=== PATIENT | male | born 1940 | race African-American/Black ===

== ENCOUNTER 2019-08-15 11:27 | Inpatient (IN) ==
[2019-08-15 12:15] LABS: BASO# 0.05 X1000 (0.0-0.2); BASO% 0.4 % (0.0-0.8); EOS# 0.21 X1000 (0.0-0.7); EOS% 1.8 % (0.0-10.0); HEMATOCRIT 35.8 % (42.0-52.0); HEMOGLOBIN 11.6 g/dL (14.0-18.0); IMM GRAN# 0.04 X1000 (0.0-0.04); IMM GRAN% 0.3 % (0.0-0.5); LYMPH# 2.36 X1000 (1.2-3.4); MCH 30.1 PG (27-31); MCHC 32.4 g/dL (33-37); MCV 92.7 FL (81-99); MONO# 1.28 X1000 (0.11-0.59); MONO% 10.9 % (1.7-9.3); MPV 10.8 FL (7.4-10.4); NEUT# 7.84 X1000 (1.4-6.5); NEUT% 66.6 % (42.2-75.2); PLT 184 X1000 (130-400); RBC 3.86 XMIL (4.7-6.1); RDW 14.5 % (11.5-14.5); WBC 11.78 X1000 (4.8-10.8)
[2019-08-15 12:21] LABS: URINE SOURCE CLEAN CATCH
[2019-08-15 12:26] LABS: BILIRUBIN URINE NEGATIVE (NEGATIVE); BLOOD URINE NEGATIVE (NEGATIVE); COLOR YELLOW; GLUCOSE URINE NEGATIVE (NEGATIVE); KETONE URINE NEGATIVE (NEGATIVE); LEUKOCYTES URINE NEGATIVE (NEGATIVE); NITRITE URINE NEGATIVE (NEGATIVE); PH URINE 5.5; PROTEIN URINE NEGATIVE (NEGATIVE); TURBIDITY URINE CLEAR (CLEAR); UROBILINOGEN URINE NORMAL (NORMAL)
--- NOTE | 2019-08-15 12:26 | EKG Report ---
Test Performed on : 08/15/2019 11:46:41 AM Test Reason : shoulder pain/CP Blood Pressure : / mmHG Vent. Rate : 066 BPM Atrial Rate : 066 BPM P-R Int : 202 ms QRS Dur : 120 ms QT Int : 432 ms P-R-T Axes : 000 -25 033 degrees QTc Int : 452 ms Normal sinus rhythm. Left ventricular hypertrophy with QRS widening Abnormal ECG No previous ECGs available Unconfirmed Result
[2019-08-15 12:28] LABS: UR EPITHELIAL CELLS <10 /HPF (<10); URINE BACTERIA NEGATIVE /HPF; URINE RBC <10 /HPF (<10); URINE WBC <10 /HPF (<10)
[2019-08-15 12:36] LABS: ALB/GLOB RATIO 1.3; ALBUMIN 4.2 g/dL (3.5-5.0); CALCIUM 8.9 mg/dL (8.8-10.2); CREATININE 1.6 mg/dL (0.7-1.2); POTASSIUM 3.7 mmol/L (3.5-5.1); TOTAL BILIRUBIN 0.49 mg/dL (0.20-1.00); TOTAL PROTEIN 7.4 g/dL (6.3-8.3)
[2019-08-15] MEDS ORDERED: ZOFRAN IV ONE (13:35)
[2019-08-15] MEDS ORDERED: NS 500 ML IV ONE (13:35)
[2019-08-15] MEDS ORDERED: DILAUDID IV ONE ×2 (13:35→15:04)
--- NOTE | 2019-08-15 14:42 | Diag Imaging Result Doc PS360 ---
CT ABD/PELVIS W/IV CONT ONLY - 08/15/2019 INDICATION: RUQ pain COMPARISON: None FINDINGS: There is extensive infiltrate in the right lower lobe compatible with pneumonia. Heart size is top normal. No pericardial effusion. The kidneys are lobular bilaterally indicating mild renal cortical scarring. No obstruction or renal atrophy. There are bilateral renal cysts. Otherwise all abdominal organs are normal. There is moderate diffuse constipation. No bowel obstruction or inflammation. Urinary bladder, prostate, and rectum are normal. There is some skin thickening with subcutaneous fat edema at the anterior body wall at the left lower quadrant/left side of the pelvis. Correlate for cellulitis. No foreign body or soft tissue gas. 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 There are advanced degenerative changes of the spine. No acute or suspicious bony lesion. There are numerous well-defined cystic bony lucencies throughout the pelvis bilaterally, indeterminate but most suggestive of cystic osteoporosis. No fractures or cortical erosions. IMPRESSION: 1. Right lower lobe infiltrate/pneumonia. 2. Constipation. 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 4. Significant area of cellulitis or other skin inflammation at the anterior left lower quadrant/left side of the pelvis. This exam was performed using automated exposure control, adjustment of mA or kV according to patient size, and/or use of iterative reconstruction technique Electronically signed by James Matias 08/15/2019 2:40 PM
--- NOTE | 2019-08-15 14:59 | PROVIDER DOCUMENTATION ---
HPI-General Adult - General Chief Complaint: Abdominal Pain Stated Complaint: RT SIDE PAIN Time Seen by Provider: 08/15/19 13:16 Source: patient Allergies/Adverse Reactions: Patient Allergies Allergy/AdvReac Type Severity Reaction Status Date / Time No Known Allergies Allergy Verified 08/15/19 13:55 Home Medications: Home Medication List Medication Instructions Recorded Confirmed Last Taken Type Bisoprolol [Zebeta] 1 dose PO DAILY 08/15/19 08/15/19 08/15/19 History Citric Acid/Sodium Citrate 1 dose PO TID 08/15/19 08/15/19 08/15/19 History [Cytra-2 Oral Solution] Cyclobenzaprine [Flexeril] 1 dose PO QHS 08/15/19 08/15/19 08/14/19 History Digoxin [Lanoxin] 0.5 tab PO DAILY 08/15/19 08/15/19 08/15/19 History Gabapentin E.r. [Gralise] 1 tab PO BID 08/15/19 08/15/19 08/15/19 History Insulin Aspart [Novolog Flexpen] 1 unit SUBQ PRN PRN 08/15/19 08/15/19 08/14/19 History Insulin Glargine,Hum.rec.anlog 40 units SUBQ HS 08/15/19 08/15/19 08/14/19 History [Lantus Solostar] Lisinopril 1 dose PO DAILY 08/15/19 08/15/19 08/15/19 History Omeprazole [Prilosec] 1 dose PO DAILY 08/15/19 08/15/19 08/15/19 History ROSUVAstatin [Crestor] 1 tab PO QHS 08/15/19 08/15/19 08/14/19 History - History of Present Illness -Gen Adult Nature of Presenting Problems: Patient is an 79 yobm who complains of RUQ pain worse with deep inspiration and lying flat since last night. Denies fever, cough, n/v/d, or any other complaints. He is non-toxic in appearance. Review of Systems - Adult - REVIEW OF SYSTEMS - ADULT Constitutional: reports: no symptoms reported. denies: chills, fever Eyes: reports: no symptoms reported Ears, Nose, Mouth & Throat: reports: no symptoms reported Cardiovascular: reports: no symptoms reported Respiratory: reports: no symptoms reported Gastrointestinal: reports: see HPI Genitourinary: reports: no symptoms reported Musculoskeletal: reports: no symptoms reported Integumentary: reports: no symptoms reported Neurological: reports: no symptoms reported Psychiatric: reports: no symptoms reported Endocrine: reports: no symptoms reported Hematologic/Lymphatic: reports: no symptoms reported Allergic/Immunologic: reports: no symptoms reported All Other Systems: Reviewed and Negative Past History - Adult - PAST MEDICAL HISTORY-ADULT Review of Records: reports: Nursing Assessment Review, Medications Reviewed, Social history reviewed & non-contributory. Major Childhood Illnesses: reports: denies history Cardiovascular: reports: HTN Respiratory: reports: denies history Gastrointestinal: reports: denies history Genitourinary: reports: denies history Musculoskeletal: reports: denies history Neurological: reports: denies history Psychiatric: reports: denies history Endocrine/Immune: reports: Diabetes Diabetes Type: Type 2 Diabetes controlled by:: Insulin Dependent Other Conditions: reports: denies history - PRIOR SURGERIES/PROCEDURES Surgical/Procedure History: reports: reviewed, not pertinent - FAMILY HISTORY Family History: reviewed, not pertinent - SOCIAL HISTORY Smoking: non-smoker Physical Exam-General - PHYSICAL EXAM-ADULT Initial Vital Signs Reviewed: Yes - CONSTITUTIONAL General Appearance: alert, mild distress. negative: lethargic, slow to respond - EYES Eyes: PERRL/EOMI, pink conjunctivae - HEAD, EARS, NOSE, MOUTH & THROAT HENMT: normocephalic/atraumatic, moist mucous membranes - NECK Neck: non-tender, full range of motion, supple, normal inspection - RESPIRATORY Respiratory: lungs clear, normal breath sounds, no respiratory distress, no accessory muscle use, pain on inspiration, splinting. negative: retractions, crepitus - CARDIOVASCULAR Cardiovascular: normal peripheral pulses, regular rate, rhythm, no edema, no gallop, no JVD, no murmur - GASTROINTESTINAL (ABDOMEN) Abdominal Exam: normal bowel sounds, non tender, soft, no organomegaly, no pulsatile mass. negative: distended, guarding, rigid, rebound, tenderness, hernia, mass, Powers's sign - MUSCULOSKELETAL Back Exam: normal inspection Extremity: normal range of motion, non-tender, normal gait, normal inspection - SKIN Integumentary: normal color, warm/dry. negative: cyanosis, diaphoresis, jaundice, mottled, pallor - NEUROLOGIC Neurologic: grossly normal, no motor/sensory deficits - PSYCHIATRIC Psych/Mental Status: normal mood/affect, normal thought content, normal thought process, oriented x 3 Progress - PLAN OF CARE/RESULTS Progress/Plan/Lab Results: Vital Signs - 8 hr 08/15/19 11:36 08/15/19 13:36 08/15/19 13:37 Temperature 97.9 F Pulse Rate 68 Respiratory Rate 16 Blood Pressure 175/75 155/87 O2 Sat by Pulse Oximetry 98 98 99 08/15/19 13:45 08/15/19 14:00 Temperature Pulse Rate Respiratory Rate Blood Pressure O2 Sat by Pulse Oximetry 98 98 Laboratory Results - last 24 hr 08/15/19 08/15/19 08/15/19 11:50 11:50 11:50 WBC 11.78 H RBC 3.86 L Hgb 11.6 L Hct 35.8 L MCV 92.7 MCH 30.1 MCHC 32.4 L RDW Std Deviation 14.5 Plt Count 184 MPV 10.8 H Immature Gran % (Auto) 0.3 Neut % (Auto) 66.6 Lymph % (Auto) 20.0 L [place] % (Auto) 10.9 H Eos % (Auto) 1.8 Baso % (Auto) 0.4 Immature Gran # (Auto) 0.04 Neut # (Auto) 7.84 H Lymph # (Auto) 2.36 [place] # (Auto) 1.28 H Eos # (Auto) 0.21 Baso # (Auto) 0.05 Sodium 136 Potassium 3.7 Chloride 103 Carbon Dioxide 22 L Anion Gap 11 BUN 22 Creatinine 1.6 H Estimated GFR/1.73 m2 51 BUN/Creatinine Ratio 14 Glucose 130 H Calculated Osmolality 277 Calcium 8.9 Total Bilirubin 0.49 AST 17 ALT 17 Alkaline Phosphatase 65 Troponin T < 0.010 Total Protein 7.4 Albumin 4.2 Globulin 3.2 Albumin/Globulin Ratio 1.3 Lipase 36 Urine Source Urine Color Urine Turbidity Urine pH Ur Specific [place] Urine Protein Ur Glucose (Stick) Ur Ketones (Stick) Urine Blood Urine Nitrite Urine Bilirubin Urobilinogen Dipstick Urine Leukocytes Urine WBC (Auto) Urine RBC (Auto) U Epithel Cells (Auto) Urine Bacteria (Auto) 08/15/19 12:15 WBC RBC Hgb Hct MCV MCH MCHC RDW Std Deviation Plt Count MPV Immature Gran % (Auto) Neut % (Auto) Lymph % (Auto) [place] % (Auto) Eos % (Auto) Baso % (Auto) Immature Gran # (Auto) Neut # (Auto) Lymph # (Auto) [place] # (Auto) Eos # (Auto) Baso # (Auto) Sodium Potassium Chloride Carbon Dioxide Anion Gap BUN Creatinine Estimated GFR/1.73 m2 BUN/Creatinine Ratio Glucose Calculated Osmolality Calcium Total Bilirubin AST ALT Alkaline Phosphatase Troponin T Total Protein Albumin Globulin Albumin/Globulin Ratio Lipase Urine Source CLEAN CATCH Urine Color YELLOW Urine Turbidity CLEAR Urine pH 5.5 Ur Specific [place] 1.010 Urine Protein NEGATIVE Ur Glucose (Stick) NEGATIVE Ur Ketones (Stick) NEGATIVE Urine Blood NEGATIVE Urine Nitrite NEGATIVE Urine Bilirubin NEGATIVE Urobilinogen Dipstick NORMAL Urine Leukocytes NEGATIVE Urine WBC (Auto) <10 Urine RBC (Auto) <10 U Epithel Cells (Auto) <10 Urine Bacteria (Auto) NEGATIVE Orders Category Date Time Status NPO Diet 08/15/19 11:[address] ABD/PELVIS W/IV CONT ONLY [CT] Stat Exams 08/15/19 13:34 Completed CBC WITH DIFF [HEME] Stat Lab 08/15/19 11:50 Completed COMPREHENSIVE METABOLIC PANEL [CHEM] Stat Lab 08/15/19 11:50 Completed LIPASE [CHEM] Stat Lab 08/15/19 11:50 Completed TROPONIN T Stat Lab 08/15/19 11:50 Completed URINALYSIS [URINALYSIS] Stat Lab 08/15/19 12:15 Completed 0.9% Sodium Chloride Inj [Ns] 500 ml Med 08/15/19 13:35 Discontinued IV 999 mls/hr Hydromorphone [Dilaudid] Med 08/15/19 13:35 Discontinued 0.5 mg IV NOW ONE Ondansetron [Zofran] Med 08/15/19 13:35 Discontinued 4 mg IV NOW ONE Abd Pain/OB <20 weeks Stat Oth 08/15/19 11:39 Ordered EKG [EKG] Stat Ther 08/15/19 11:40 Draft Result Diagrams: 08/15/19 11:50 08/15/19 11:50 - REASSESSMENT Reassessment #1 Time Reassessed: 14:50 Status: improving (Pt states pain improved with Dilaudid but has since worn off and he is hurting again. Will re-medicate. He is in agreement with admission plan. Re-examined abdomen, no external cellulitis in LLQ, CT finding noted and discussed with admitting HPS. Pt denies pain or tenderness in this region.) - EKG 1 Time of EKG reading by physician:: 11:50 EKG Read and Signed by:: Alisa Hearn EKG Interpretation (*Must complete 3 of following elements*): Abnormal Rate: 66 Rhythm: NSR- left ventricular hypertrophy with QRS widening ST Wave: normal - CT/MRI 1 CT Study: Abdomen, Pelvis ([facility] - [address] [facility], [address], [place] [address] [facility] - [address] [place] [address] Department of Imaging Patient: MARYANN BYRNE Date: #: [id number] : 1940DM Status: REG ERAcct#: [id number] Age/Sex: 79/MRoom/Bed: Loc: ED Ordering Physician: Ari Villalobos Family Physician: Jose Alfredo Najera MD Reason for Procedure: RUQ pain ____ Signed CT ABD/PELVIS W/IV CONT ONLY - 08/15/2019 INDICATION: RUQ pain COMPARISON: None FINDINGS: There is extensive infiltrate in the right lower lobe compatible with pneumonia. Heart size is top normal. No pericardial effusion. The kidneys are lobular bilaterally indicating mild renal cortical scarring. No obstruction or renal atrophy. There are bilateral renal cysts. Otherwise all abdominal organs are normal. There is moderate diffuse constipation. No bowel obstruction or inflammation. Urinary bladder, prostate, and rectum are normal. There is some skin thickening with subcutaneous fat edema at the anterior body wall at the left lower quadrant/left side of the pelvis. Correlate for cellulitis. No foreign body or soft tissue gas. 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 There are advanced degenerative changes of the spine. No acute or suspicious bony lesion. There are numerous well-defined cystic bony lucencies throughout the pelvis bilaterally, indeterminate but most suggestive of cystic osteoporosis. No fractures or cortical erosions. IMPRESSION: 1. Right lower lobe infiltrate/pneumonia. 2. Constipation. 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 4. Significant area of cellulitis or other skin inflammation at the anterior left lower quadrant/left side of the pelvis. This exam was performed using automated exposure control, adjustment of mA or kV according to patient size, and/or use of iterative reconstruction technique Electronically signed by James Matias 08/15/2019 2:40 PM 08/15/19 1440 Interpreting Physician: James Matias MD Dictated Date/Time: 08/15/19 1435 cc: Ari Villalobos; Jose Alfredo Najera MD) - CONSULTS/PCP/HOSPITALIST Notification #1 *Consult/PCP/Hospitalist*: MARTHA Gonzalez MICROBIOLOGY PROFESSOR Time Discussed: 15:05 Reason/Comments: admission- pne Consult Disposition: Will see in ED, Admit Departure - Departure Date of Disposition Decision: 08/15/19 Time of Disposition Decision: 15:00 DIAGNOSIS: Pneumonia Qualifiers: Pneumonia type: due to unspecified organism Laterality: right Lung location: lower lobe of lung Qualified Code(s): J18.1 - Lobar pneumonia, unspecified organism Disposition: ADMITTED INPATIENT 09 Certified Medical Emergency: Emergent Condition: Stable Referrals and Follow-Ups: Jose Alfredo Najera MD [Primary Care Provider] - - Critical Care Note This patient required my direct & personal management of CC.: No Attestation - Physician/ HERON Attestation Patient care was provided by Advanced Practice Provider:: Yes Advanced Practice Provider:: Ari Villalobos Advanced Practice Provider documentation review:: The Mid-level provider documentation, treatment plan and medical decision making was reviewed by the physician who agrees with all treatment and medical decision making by the P. The physician spent face to face time with patient:: No Advanced Practice Provider documentation review:: Supervising physician onsite and consulted in the evaluation and care of this patient. The physician did not have a face to face encounter with the patient.
[2019-08-15] MEDS ORDERED: ROCEPHIN 1 GM in NS 50 ML IV ONE (15:04)
[2019-08-15] MEDS ORDERED: DUONEB (A & A) INH PRN (16:55)
[2019-08-15] MEDS ORDERED: TYLENOL PO PRN (16:55)
[2019-08-15] MEDS ORDERED: BICITRA PO SCH (17:00)
--- NOTE | 2019-08-15 17:33 | HISTORY AND PHYSICAL ---
HISTORY OF PRESENT ILLNESS: He is an 79-year-old, I think he is followed by Dr. Sharp. He is from [place]. He reports that he started having some right upper quadrant pain and that started yesterday, and that is really what is his main concern. He is status post appendectomy, but he denied chest pain. He denies shortness of breath. No pleuritic pain in the chest, but when he described the pain it seemed to hurt when he took a deep breath in the right upper quadrant right underneath the rib margin. PAST MEDICAL HISTORY: 1. Hypertension. 2. Diabetes mellitus type 2, which he has had for 25 years. 3. Hyperlipidemia. 4. Gastroesophageal reflux disease. 5. He has some spurs in his back he has had surgery on his lower back for diskectomy in the past. 6. We are presuming maybe he was treated for atrial fibrillation, for awhile he was on digoxin. He does not give any history of known heart disease. He said his heart was a little jittery for a while. PAST SURGICAL HISTORY: 1. Status post appendectomy. 2. Back surgery, lower back laminectomy it sounds like we had or decompressive surgery. SOCIAL HISTORY: Negative for alcohol, tobacco, and illicit drugs. He is retired. He does a lot of gardening. He is pretty active. FAMILY HISTORY: Mother with hypertension. All his siblings with hypertension. Father with hypertension. ALLERGIES: No known drug allergies. REVIEW OF SYSTEMS: General: He does not report any weight gain or loss. No change in appetite. HEENT: No change in visual or hearing acuity. Neck: No neck pain. No adenopathy that he reports. Respiratory: No increased work of breathing or dyspnea. Cardiovascular: No chest pain or tachy palpitation. Gastrointestinal/Genitourinary: Really no change in his bowels. He does have constipation, takes milk of magnesia about every 3rd day, but he was complaining of right upper quadrant discomfort, which is what brought him to the emergency room. Musculoskeletal/Neurologic: No focal complaints. Immunologic/Hemologic: No significant history. PHYSICAL EXAMINATION: VITAL SIGNS: Temperature is 97.9 degrees, pulse 68, respirations 16, blood pressure 158/87. Weight 225 pounds. Height 5 feet 11 inches. HEENT: Pupils are equal and round. LUNGS: Clear in all lung thompson. CARDIOVASCULAR: Regular rhythm and rate without murmur or S3. ABDOMEN: Soft. He some tenderness that is deep. He really was not real tender to palpation on the abdomen, but he pointed to the right mid upper quadrant and felt it was deep down. SKIN: Warm and dry. NECK: Supple. No thyromegaly, no lymphadenopathy. LABORATORY DATA: White count 11,780, hematocrit 35, hemoglobin 11, platelet count 184,000. Sodium 136, potassium 3.7, chloride 107, BUN 22, creatinine 1.6. AST is 17, ALT is 17. Troponin less than 0.01. Albumin was 4.2. 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 On exam, I did not see any sign of skin cellulitis. ASSESSMENT AND PLAN: 1. Right lower lobe pneumonia or infiltrate. It is a community-acquired pneumonia, so we will treat him with ceftriaxone, and we will give him 1 gram now and then every 24 hours. I am not sure what is causing the right-sided abdominal pain, whether it could be referred pain since it is right lower lobe pneumonia. 2. Diabetes mellitus type 2. Will check pattern sugars. Put him on a sliding scale. 3. History of constipation. Aware. We will give milk of magnesia as needed. 4. Hypertension. 5. History of gastroesophageal reflux, so we will put him on Nexium 40 mg once a day. 6. Not sure what history he had as far as saying his heart was jittery. We will continue his current medications. He is on digoxin, so we ought to check a digoxin level, and we will do that in the morning, check a digoxin level. Continue his home medications. cc: Adolfo Hopkins MD
[2019-08-15] MEDS: LANTUS INSULIN SUBQ SCH (20:59)
[2019-08-15] MEDS: FLEXERIL PO SCH (20:59)
[2019-08-15] MEDS: NEURONTIN PO SCH (20:59)
[2019-08-15] MEDS: CRESTOR PO SCH (20:59)
[2019-08-15] MEDS: NS 1,000 ML IV SCH (21:00)
[2019-08-16 05:55] LABS: BASO# 0.02 X1000 (0.0-0.2); BASO% 0.2 % (0.0-0.8); EOS% 0.9 % (0.0-10.0); HEMATOCRIT 34.2 % (42.0-52.0); HEMOGLOBIN 10.9 g/dL (14.0-18.0); IMM GRAN# 0.02 X1000 (0.0-0.04); IMM GRAN% 0.2 % (0.0-0.5); LYMPH# 1.63 X1000 (1.2-3.4); LYMPH% 15.1 % (20.5-51.1); MCH 29.7 PG (27-31); MCHC 31.9 g/dL (33-37); MCV 93.2 FL (81-99); NEUT# 7.76 X1000 (1.4-6.5); NEUT% 71.6 % (42.2-75.2); PLT 174 X1000 (130-400); RBC 3.67 XMIL (4.7-6.1); RDW 14.6 % (11.5-14.5); WBC 10.83 X1000 (4.8-10.8)
[2019-08-16 06:07] LABS: HEMOGLOBIN A1C 7.8 % (4.8-6.0)
[2019-08-16 06:12] LABS: AGAP 9; ALB/GLOB RATIO 1.1; ALBUMIN 3.6 g/dL (3.5-5.0); ALKALINE PHOSPHATASE 57 U/L (32-122); BUN 20 mg/dL (8-22); CALCIUM 8.8 mg/dL (8.8-10.2); CHLORIDE 104 mmol/L (98-107); COSMO 278; CREATININE 1.4 mg/dL (0.7-1.2); DIGOXIN < 0.3 ng/mL (0.9-2.0); ESTIMATED GFR 59; GLUCOSE 159 mg/dL (70-104); GOT 14 U/L (10-34); GPT 12 U/L (10-44); POTASSIUM 3.9 mmol/L (3.5-5.1); SODIUM 136 mmol/L (136-145); TCO2 23 mmol/L (25-35); TOTAL BILIRUBIN 0.49 mg/dL (0.20-1.00); TOTAL PROTEIN 6.9 g/dL (6.3-8.3)
[2019-08-16] MEDS: PRILOSEC PO SCH (06:53)
[2019-08-16 06:54] LABS: FREE T4 1.17 ng/dL (0.93-1.70); TSH 0.68 uIUmL (0.27-4.20)
--- NOTE | 2019-08-16 09:03 | Diag Imaging Result Doc PS360 ---
EXAM: CHEST-2 VIEWS INDICATION: Pneumonia TECHNIQUE: 2 views COMPARISON: None. FINDINGS: There are increased linear opacities at both lung bases suggesting atelectasis, worse on the right. A component of superimposed pneumonia at the right lung base is possible. There is no discrete pleural fluid collection or pneumothorax. The cardiomediastinal silhouette and central vasculature are grossly unremarkable. IMPRESSION: Bibasilar atelectasis +/- superimposed pneumonia at the right lung base. Electronically signed by Jose Daniel Saleh 08/16/2019 9:00 AM
[2019-08-16] MEDS: NS 1,000 ML IV SCH ×3 (10:14→22:46)
[2019-08-16] MEDS: LANOXIN PO SCH (10:15)
[2019-08-16] MEDS: PRINIVIL PO SCH (10:15)
[2019-08-16] MEDS: LOVENOX SUBQ SCH (10:17)
[2019-08-16] MEDS: NEURONTIN PO SCH ×2 (10:17→20:50)
[2019-08-16] MEDS: ZEBETA PO SCH (10:27)
--- NOTE | 2019-08-16 13:33 | PROGRESS NOTE ---
DATE: 08/16/[address] Najera. An 79-year-old followed by Dr. Najera and he is from [place]. We put him in yesterday. Appears to have right lower quadrant pneumonia. He does feel better. His pain is better. OBJECTIVE: Vital Signs: Temp 98.2 degrees, pulse 67, respirations 19, blood pressure 186/64. HEENT: Pupils are equal and round. Lungs: Are clear in all lung thompson. Cardiovascular: Regular rhythm and rate without murmur or S3. Urine output was 2200 mL. ASSESSMENT AND PLAN: 1. Chest x-ray: Bibasilar atelectasis superimposed pneumonia in the right lung base. Continue present antibiotics. Clinically improved. 2. Diabetes mellitus type 2. Sugars under good control. 3. History of constipation. No complaints. 4. Hypertension. 5. History of gastroesophageal reflux. REVIEW OF HIS ORDERS: I do not see any change. Normal saline going at 85 mL an hour and we have him on ceftriaxone 1 g daily. LABORATORY DATA: From this morning, white count 33457, hematocrit is 34, platelet count 174,000. Blood sugars look okay. cc: Adolfo Hopkins MD
[2019-08-16] MEDS: ROCEPHIN 1 GM in NS 50 ML IV SCH (18:05)
[2019-08-16] MEDS: CRESTOR PO SCH (20:50)
[2019-08-16] MEDS: FLEXERIL PO SCH (20:50)
[2019-08-16] MEDS: HUMULIN R SUBQ SCH (20:50)
[2019-08-16] MEDS: LANTUS INSULIN SUBQ SCH (20:52)
[2019-08-17] MEDS: NS 1,000 ML IV SCH ×3 (04:34→16:04)
[2019-08-17] MEDS: PRILOSEC PO SCH (06:24)
[2019-08-17 06:59] LABS: AGAP 12; ALB/GLOB RATIO 0.8; ALKALINE PHOSPHATASE 53 U/L (32-122); BUN 14 mg/dL (8-22); CALCIUM 8.2 mg/dL (8.8-10.2); CHLORIDE 107 mmol/L (98-107); COSMO 280; CREATININE 1.2 mg/dL (0.7-1.2); ESTIMATED GFR > 60; GLUCOSE 138 mg/dL (70-104); GOT 15 U/L (10-34); GPT 12 U/L (10-44); POTASSIUM 3.7 mmol/L (3.5-5.1); SODIUM 139 mmol/L (136-145); TCO2 20 mmol/L (25-35); TOTAL BILIRUBIN 0.37 mg/dL (0.20-1.00); TOTAL PROTEIN 6.6 g/dL (6.3-8.3)
[2019-08-17] MEDS: HUMULIN R SUBQ SCH ×4 (07:00→20:37)
[2019-08-17] MEDS: ZEBETA PO SCH (08:49)
[2019-08-17] MEDS: PRINIVIL PO SCH (08:49)
[2019-08-17] MEDS: LANOXIN PO SCH (08:49)
[2019-08-17] MEDS: LOVENOX SUBQ SCH (08:51)
[2019-08-17] MEDS: NEURONTIN PO SCH ×2 (09:49→20:37)
[2019-08-17] MEDS ORDERED: MILK OF MAGNESIA PO ONE (13:08)
--- NOTE | 2019-08-17 13:23 | PROGRESS NOTE ---
DATE: 08/17/2019 SUBJECTIVE: Mr. Barber is breathing comfortably. Right upper quadrant pain is almost resolved. He is complaining of constipation so I am going to try him on some MiraLAX and some milk of magnesia. He remains afebrile. OBJECTIVE: Temperature 98.2 degrees, pulse 70, respirations 16, blood pressure 155/55. Pupils are equal and round. Lungs are clear in all lung thompson. Cardiovascular Examination: Regular rhythm and ate without murmur or S3. Abdomen is soft. Skin is warm and dry. Blood sugars 280, 116, 201. ASSESSMENT AND PLAN: 1. Chest x-ray showed bibasilar atelectasis superimposed on pneumonia in the right lung base. Continue his present antibiotics. Hopefully home tomorrow. 2. Diabetes mellitus type 2. Sugar is under good control. 3. History of constipation. We will give him milk of magnesia. Start him on some MiraLAX. Let him use a Dulcolax suppository if necessary. 4. Hypertension. 5. History of gastroesophageal reflux. LABS: Lab reviewed from yesterday. Repeat chest x-ray yesterday, bibasilar atelectasis superimposed on pneumonia in the right lung base. We will check another x-ray in the morning. I will get a PA and lateral in the morning. cc: Adolfo Hopkins MD
[2019-08-17] MEDS: ROCEPHIN 1 GM in NS 50 ML IV SCH (16:09)
[2019-08-17] MEDS ORDERED: DULCOLAX PR ONE (16:11)
[2019-08-17] MEDS: CRESTOR PO SCH (20:37)
[2019-08-17] MEDS: FLEXERIL PO SCH (20:37)
[2019-08-17] MEDS: LANTUS INSULIN SUBQ SCH (20:38)
[2019-08-18] MEDS: NS 1,000 ML IV SCH ×2 (00:28→06:01)
[2019-08-18] MEDS: HUMULIN R SUBQ SCH ×2 (06:02→12:27)
[2019-08-18] MEDS: PRILOSEC PO SCH (06:13)
[2019-08-18 06:14] LABS: AGAP 10; ALBUMIN 3.4 g/dL (3.5-5.0); ALKALINE PHOSPHATASE 53 U/L (32-122); BUN 12 mg/dL (8-22); CHLORIDE 104 mmol/L (98-107); COSMO 274; CREATININE 1.1 mg/dL (0.7-1.2); ESTIMATED GFR > 60; GLUCOSE 146 mg/dL (70-104); GOT 17 U/L (10-34); GPT 14 U/L (10-44); POTASSIUM 3.8 mmol/L (3.5-5.1); SODIUM 136 mmol/L (136-145); TCO2 22 mmol/L (25-35); TOTAL BILIRUBIN 0.35 mg/dL (0.20-1.00); TOTAL PROTEIN 6.9 g/dL (6.3-8.3)
[2019-08-18] MEDS ORDERED: MIRALAX PO SCH (09:00)
[2019-08-18] MEDS: NEURONTIN PO SCH (09:28)
[2019-08-18] MEDS: PRINIVIL PO SCH (09:28)
[2019-08-18] MEDS: ZEBETA PO SCH (09:29)
[2019-08-18] MEDS: LANOXIN PO SCH (09:29)
[2019-08-18] MEDS: LOVENOX SUBQ SCH (09:30)
--- NOTE | 2019-08-18 10:11 | Diag Imaging Result Doc PS360 ---
EXAM: CHEST-2 VIEWS HISTORY: pneumonia TECHNIQUE: Chest two views COMPARISON: 08/16/2019 FINDINGS: Worsening atelectasis and infiltrates in the right lower lobe. There is a tiny right pleural effusion. The left lung is clear. No cardiomegaly. No pulmonary edema. IMPRESSION: Interval worsening Electronically signed by Last Arthur 08/18/2019 10:08 AM
--- NOTE | 2019-08-18 10:14 | DISCHARGE SUMMARY ---
ADMISSION DATE: 08/15/2019 DISCHARGE DATE: 08/18/2019 HISTORY OF PRESENT ILLNESS: This is an 79-year-old who is followed by Dr. Sharp. He is from [place]. Started having some right upper quadrant pain, and intensified. Came to the emergency room. Discovered he had a right lower lobe pneumonia. Really did not complain of much cough, but he did have a pleuritic nature to his pain. Denied any fever, chills, just kind of general malaise. PAST MEDICAL HISTORY: 1. Hypertension. 2. Diabetes mellitus type 2 for the last 25 years. 3. Hyperlipidemia. 4. Gastroesophageal reflux disease. 5. Spurs on his back. He has had surgery on his lower back for diskectomy in the past. 6. I think he has been treated for atrial fibrillation. He said he has had some fluttering in his heart before that has been treated. PAST SURGICAL HISTORY: 1. Status post appendectomy. 2. Back surgery, lower back laminectomy, sounds like decompressive surgery in the past. HOSPITAL COURSE: Admitted with right lower lobe community-acquired pneumonia, and he has been treated with ceftriaxone, which he tolerated well. His blood pressure is doing well. He wanted to go home on 08/18/2019. He did complain of some constipation. Gave him some milk of magnesia and put him on some MiraLAX. Plan to let him go home. Will put him on Levaquin 750 mg p.o. daily for another 7 days. Otherwise, for discharge medications, he will be on his Zebeta 5 mg daily. He takes Bicitra, I think he takes that 3 times a day, Flexeril 10 mg at bedtime. He is on digoxin at home at 0.5 mg daily, gabapentin ER 1 p.o. b.i.d. He takes his FlexPen, I think SoloStar 40 units subcutaneously at bedtime, and he takes his lisinopril p.o. daily, 1 a day. cc: Adolfo Hopkins MD MTDD
[2019-08-18 12:50] VITALS: BP 183/87
== END 2019-08-18 15:24 | disposition home or self-care (01) | DRG 194 ==
LOC: ED 11:27 → 1N 18:42
PROVIDERS: ATTEND Emergency Medicine